=== PATIENT | female | born 1995 | race Caucasian/White ===

== ENCOUNTER 2016-12-05 09:27 | Emergency (ER) | payer OTHER ==
[2016-12-05] MEDS ORDERED: Cyclobenzaprine 10 MG Tab PO ONE (09:50)
--- NOTE | 2016-12-05 09:55 | EDM.PDOC ---
[id number]: TROUBLE BREATHING/BACK PAIN Time Seen by Provider: 12/05/16 09:28 Source of Information: Reports: Patient History Limitations: Reports: No limitations - History of Present Illness INITIAL COMMENTS - FREE TEXT/NARRATIVE: History of present illness: [] Last night patient felt sudden left flank pain that she is describing as a muscle spasm which hard to breathe. She denies having any trauma or doing any activity that brought this on. She has had this once before and it was diagnosed as a muscle spasm. Patient denies any fevers, chills, blood in her urine, nausea or vomiting. Review of systems: As per history of present illness and below otherwise all systems reviewed and negative. Past medical history: As per history of present illness and as reviewed below otherwise noncontributory. Surgical history: As per history of present illness and as reviewed below otherwise noncontributory. Social history: No reported history of drug or alcohol abuse. Family history: As per history of present illness and as reviewed below otherwise noncontributory. Physical exam: General: Well developed, well nourished in NAD HEENT: Atraumatic, normocephalic, pupils reactive, negative for conjunctival pallor or scleral icterus, mucous membranes moist, throat clear, neck supple, nontender, trachea midline. Lungs: Clear to auscultation, breath sounds equal bilaterally, chest nontender. Heart: S1S2, regular, negative for clicks, rubs, or JVD. Abdomen: Soft, nondistended, nontender. Negative for masses or hepatosplenomegaly. Negative for costovertebral tenderness. Back: Left flank with palpable tenderness of her muscles. There is no lesions or rash. Pelvis: Stable nontender. Genitourinary: Deferred. Rectal: Deferred. Extremities: Atraumatic, negative for cords or calf pain. Neurovascular unremarkable. Neuro: Awake, alert, oriented. Cranial nerves II through XII unremarkable. Cerebellum unremarkable. Motor and sensory unremarkable throughout. Exam nonfocal. Diagnostics: [] UA hCG done on negative for blood/ Therapeutics: [] Flexeril tablet given in the ED patient initially refused pain meds then accepted Toradol IM for pain. Impression: [] Mid back spasm Plan: [] Ice/heat to back Motrin for pain Flexeril for spasm lower PMD Definitive disposition and diagnosis as appropriate pending reevaluation and review of above. - Related Data Allergies/ADRs: Allergies Allergy/AdvReac Type Severity Reaction Status Date / Time No Known Allergies Allergy Verified 12/05/16 09:35 Home Meds: Home Meds . [No Known Home Meds] 12/05/16 [History] Past Medical History - Past Health History Medical/Surgical History: Denies Medical/Surgical History Social & Family History - Tobacco Use Smoking Status *Q: Never Smoker Second Hand Smoke Exposure: No - Caffeine Use Caffeine Use: Reports: Coffee, Tea - Recreational Drug Use Recreational Drug Use: No ED ROS GENERAL - Review of Systems Review Of Systems: See Below (See history of present illness) ED EXAM, UPPER BACK/NECK PAIN - Physical Exam Exam: See Below (See history of present illness) Course - Vital Signs Last Recorded V/S: Last Vital Signs Temp 36.4 C 12/05/16 09:35 Pulse 74 12/05/16 09:35 Resp 18 12/05/16 09:35 BP 129/65 12/05/16 09:35 Pulse Ox 97 12/05/16 09:35 - Orders/Labs/Meds Labs: Laboratory Tests 12/05/16 12/05/16 Range/Units 09:55 09:55 Urine Color YELLOW Urine Appearance CLEAR Urine pH 7.0 (5.0-8.0) Ur Specific [place] 1.010 (1.001-1.035) Urine Protein NEGATIVE (NEGATIVE) mg/dL Urine Glucose (UA) NEGATIVE (NEGATIVE) mg/dL Urine Ketones NEGATIVE (NEGATIVE) mg/dL Urine Occult Blood MODERATE (NEGATIVE) Urine Nitrite NEGATIVE (NEGATIVE) Urine Bilirubin NEGATIVE (NEGATIVE) Urine Urobilinogen 0.2 (<2.0) EU/dL Ur Leukocyte Esterase NEGATIVE (NEGATIVE) Urine RBC 0-1 (0-2/HPF) Urine WBC 0-2 (0-5/HPF) Ur Epithelial Cells FEW (NONE-FEW) Urine Bacteria FEW (NEGATIVE) Urine HCG, Qual NEGATIVE (NEGATIVE) Meds: Medications Discontinued Medications Generic Name Dose Route Start Last Admin Trade Name Freq PRN Reason Stop Dose Admin Cyclobenzaprine HCl 10 mg 12/05/16 09:50 12/05/16 09:58 Flexeril PO 12/05/16 09:51 10 mg ONETIME ONE Administration Ketorolac Tromethamine 60 mg 12/05/16 10:48 12/05/16 11:05 Toradol IM 12/05/16 10:49 60 mg ONETIME ONE Administration Departure - Departure Time of Disposition: 11:22 Disposition: Home, Self-Care 01 Condition: good Clinical Impression: Back muscle spasm Referrals: PCP,None [Primary Care Provider] - Forms: ED Department Discharge Additional Instructions: The following information is given to patients seen in the emergency department who are being discharged to home. This information is to outline your options for follow-up care. We provide all patients seen in our emergency department with a follow-up referral. The need for follow-up, as well as the timing and circumstances, are variable depending upon the specifics of your emergency department visit. If you don't have a primary care physician on staff, we will provide you with a referral. We always advise you to contact your personal physician following an emergency department visit to inform them of the circumstance of the visit and for follow-up with them and/or the need for any referrals to a consulting specialist. The emergency department will also refer you to a specialist when appropriate. This referral assures that you have the opportunity for follow-up care with a specialist. All of these measure are taken in an effort to provide you with optimal care, which includes your follow-up. Under all circumstances we always encourage you to contact your private physician who remains a resource for coordinating your care. When calling for follow-up care, please make the office aware that this follow-up is from your recent emergency room visit. If for any reason you are refused follow-up, please contact the [facility] at and asked to speak to the emergency department charge nurse. Motrin for pain Flexeril for spasm ice and heat to back. Followup with PMD return if symptoms worsen or change [facility] [place] [id number]
[2016-12-05] MEDS ORDERED: Ketorolac 60 MG/2 ML SDV IM ONE (10:48)
[2016-12-05 11:39] VITALS: BP 117/42
== END 2016-12-05 11:39 | disposition home or self-care (01) ==
LOC: MW.ED 09:27
DX: M62.830 Muscle spasm of back (principal)
CPT/HCPCS: 81001; 81025; 99283; A9270; J1885